=== PATIENT | male | born 1995 | race Asian ===

== ENCOUNTER 2018-03-21 22:44 | Emergency (ER) | payer OTHER ==
[~2018-03-21] VITALS: Ht 165.1 cm; Wt 92.1 kg
[2018-03-21 23:45] VITALS: BP 152/73
== END 2018-03-21 23:46 | disposition home or self-care (01) ==
LOC: EME 22:44
DX: R51 Headache (principal); M54.2 Cervicalgia; R42 Dizziness and giddiness; V43.52XA Car driver injured in collision with other type car in traffic accident, initial encounter; Z87.891 Personal history of nicotine dependence
CPT/HCPCS: 99281; 99283